=== PATIENT | female | born 1995 ===

== ENCOUNTER → 2025-03-24 | Day surgery (SDC) | payer OTHER ==
[2025-03-17 09:14] VITALS: BP 140/96
[2025-03-17 09:29] LABS: URINE APPEARANCE Clear; URINE BILIRRUBIN Negative (NEGATIVE); URINE BLOOD Negative; URINE COLOR Yellow; URINE GLUCOSE Negative (NEGATIVE); URINE KETONE Negative (NEGATIVE); URINE LEUKOCYTE Negative; URINE NITRATE Negative; URINE PROTEIN Negative (NEGATIVE); URINE UROBILINOGEN 0.2 E.U./dl
[2025-03-17 09:33] LABS: URINE BACTERIA 388.6 uL (0.0-1933); URINE EPITHELIAL CELLS 9.6 uL (0.0-38.8); URINE WBC 8.2 uL (0.0-23.2)
[2025-03-17 09:34] LABS: BASO % 0.7 % (0.1-1.2); EOS # 0.21 (0.04-0.54); EOS % 5.2 % (0.7-7.0); LYMPH # 1.64 (1.18-3.74); LYMPH % 40.8 % (19.3-53.1); MEAN PLATELET VOLUME 10.80 fl (9.4-12.4); MONO # 0.28 (0.24-0.82); MONO % 7.0 % (4.7-12.5); NEUT # 1.85 (1.56-6.13); NEUT % 46.1 % (34.0-71.1); RED CELL DISTRIBUTION WIDTH 11.4 % (11.6-14.4)
[2025-03-17 09:39] LABS: URINE CAST 0.00 uL (0.0-1.40); URINE RBC 0.8 uL (0.0-20.8)
[2025-03-17 10:07] LABS: ALT/SGPT 22.0 U/L (12-78); AST/SGOT 14.0 U/L (15-37); BILIRUBIN TOTAL 0.54 mg/dL (0.3-1.2); BUN CREA RATIO 19.0 (7.0-25.0); CREATININE SERUM 0.62 mg/dL (0.55-1.02); GFR 113.02; GLOBULINA 3.3 G/DL (2.4-3.5); GLUCOSE FASTING 95.0 mg/dL (65-100); OSMOLALITY SERUM 285.0 MOSM/KG (275-295)
[2025-03-17 10:25] LABS: INR 0.96
[~2025-03-24] VITALS: Ht 170.2 cm; Wt 117.9 kg
[~2025-03-24] MED LIST: CEFAZOLIN SODIUM 1,000 MG VIAL IV ONE; MORPHINE SULFATE 4 MG/ML VIAL IV ONE; SUGAMMADEX SODIUM 200 MG/2 ML VIAL IV ONE; ZESTRIL5 MG PO
== END | disposition home or self-care (01) ==
LOC: ADM 03-17 08:15 → CIR.AMB 06:00
PROVIDERS: ATTEND Surgery
DX: K80.10 Calculus of gallbladder with chronic cholecystitis without obstruction (principal)